=== PATIENT | male | born 1995 | race Caucasian/White ===

== ENCOUNTER 2024-07-21 12:26 | Emergency (ER) | payer BC, SELFPAY ==
[2024-07-21 12:40] VITALS: BP 126/69; PULSE 85; RESP 16; TEMP 36.3; O2SAT 98; BMI 28.5
--- NOTE | 2024-07-21 13:06 | ED.LOWEXIN ---
HPI - Extremity Injury (Lower) General Date Seen: 07/21/24 Chief Complaint: Extremity Pain/Injury, Lower Stated Complaint: Right knee and hip injury Time Seen by Provider: 07/21/24 12:29 Source: patient Mode of arrival: ambulatory Limitations: no limitations History of Present Illness HPI Narrative: Patient is a 29-year-old male presenting for right hip and right knee pain. He states 2 days ago he was skiing when he fell. There was a twisting motion knee heard a pop in his knee. Since then has been wearing a brace that he purchased from [employer] but does have quite a bit of pain with movement. Is able support his weight on the right leg but if there was any twisting he has a severe amount of pain and feels like his knee will give out. Also having some right lateral hip pain. Most the pain is on the medial aspect of his knee. No other injuries noted. Related Data Previous Rx's ?Medication ?Instructions ?Recorded oxycodone 5 mg tablet 5 mg PO Q6H PRN pain #12 tabs 07/21/24 Allergies Allergy/AdvReac Type Severity Reaction Status Date / Time No Known Drug Allergies Allergy Verified 07/21/24 12:35 Review of Systems Narrative: Pertinent systems reviewed and were negative unless stated in HPI Exam Narrative: Exam Narrative: Const: Well-nourished, Well-developed, in mild distress Eyes: PERRL, no conjunctival injection, and symmetrical lids HENT: Atraumatic external nose and ears. Moist mucous membranes. MSK: Some swelling over the right knee with tenderness noted to the medial aspect of the joint. Mild tenderness to palpation right trochanteric process. Lionel's test shows knee pain and a clicking sound when doing both valgus and varus stress Skin: Warm, Dry. No rashes or lesions. Neuro: Normal Muscle tone, No focal neurological deficits. Psych: Awake, Alert, & Oriented x3. Appropriate mood and affect. Const: Vital Signs, click to edit/add: Vital Signs - 24 hr 07/21/24 12:40 Temperature 97.4 F L Pulse Rate [Pulse Oximeter] 85 Respiratory Rate 16 Blood Pressure [Ri ght Upper Arm] 126/69 Pulse Oximetry 98 Oxygen Delivery Me thod Room Air Course Vital Signs Vital signs: Initial Vital Signs Temperature 97.4 F L 07/21/24 12:40 Temperature Source Temporal Artery Scan 07/21/24 12:40 Pulse Rate 85 07/21/24 12:40 Pulse Rhythm Regular 07/21/24 12:40 Respiratory Rate 16 07/21/24 12:40 Blood Pressure 126/69 07/21/24 12:40 Blood Pressure Mean 88 07/21/24 12:40 Blood Pressure Position Sitting 07/21/24 12:40 Pulse Oximetry 98 07/21/24 12:40 Oxygen Delivery Method Room Air 07/21/24 12:40 Vital Signs Temperature 97.4 F L 07/21/24 12:40 Pulse Rate 85 07/21/24 12:40 Respiratory Rate 16 07/21/24 12:40 Blood Pressure 126/69 07/21/24 12:40 Pulse Oximetry 98 07/21/24 12:40 Oxygen Delivery Method Room Air 07/21/24 12:40 Temperature 97.4 F L 07/21/24 12:40 Pulse Rate 85 07/21/24 12:40 Respiratory Rate 16 07/21/24 12:40 Blood Pressure 126/69 07/21/24 12:40 Pulse Oximetry 98 07/21/24 12:40 Oxygen Delivery Method Room Air 07/21/24 12:40 MDM - Extremity Injury (Lower) MDM Narrative Medical decision making narrative: Patient is a 29-year-old male presenting for right knee and hip pain. Hip pain is unlikely to be anything see years for will do an x-ray. Concern of her fracture is low. I do believe he likely has a meniscal tear to his right knee possible MCL injury. Will do an x-ray to make sure there are no fractures. I ordered the right knee x-ray but also accidentally ordered and hip CT instead of an x-ray. The CT of his right hip shows a 2 mm shows punctate hyperdensity in the superior thigh likely a foreign body or sequela from a previous injury. The x-ray of the knee shows possible hairline fracture of the tibial spine. This could represent a nondisplaced tibial spine fracture. This could be a sign of ACL injury. I spoke to the patient about needing to follow up with Orthopedics. 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 He may be unable to follow-up with orthopedics until then. Due that I spoke to him about MRI. I explained to him cost associated with MRI he states he understands. He would like to do the MRI now. While I was waiting for the MRI to be done I did speak to the on-call orthopedics provider and asked the patient has an ACL and meniscus injury if he needs to follow up right away or he can follow up when he is back to his home state in a few months. I was informed that he can follow-up in a few months the patient will be just very uncomfortable that entire time. I explained this to the patient and he agrees with this plan. MRI will be done. knee brace and crutches ordered Patient is expected to be discharged after his MRI is read. Discharge Plan Discharge Clinical Impression: Acute medial meniscal injury of right knee Qualifiers: Encounter type: initial encounter Qualified Code(s): S83.8X1A - Sprain of other specified parts of right knee, initial encounter ACL (anterior cruciate ligament) tear Qualifiers: Encounter type: initial encounter Laterality: right Qualified Code(s): S83.511A - Sprain of anterior cruciate ligament of right knee, initial encounter Patient Disposition: Home, Self-Care Condition: Stable Additional Instructions: Using a knee brace as needed for comfort. He may need to get a larger 1 for support of your knee. I prescribed a written prescription for crutches and a knee brace Prescriptions: New oxycodone 5 mg tablet 5 mg PO Q6H PRN (Reason: pain) Qty: 12 0RF Follow Up/Referrals: Provider,Not a Local [Primary Care Provider] - Stand Alone Forms: damntheradio Info Instructions
--- OUTSIDE RECORDS SUMMARY | 2024-07-21 13:21 | XMS_ITS | Encounter Summary ---
Author Organization [facility] Address [address] [place] [address] Care Team Providers Care Director Of Radio Services Name Role Phone Ramon Hinson MD Primary Care Provider Encounter Details Date Type Department Care Team (Late st Contact Info) Description 07/01/2024 External Device Data [facility] Provider, Abstract NO ADDRESS ON FILE Social History Tobacco Use Types Packs/Day Years Used Date Smoking Tobacco: Former Cigarettes Smokeless Tobacco: Never Alcohol Use Standard Drinks/Week Comments Yes 0 (1 standard drink = 0.6 oz pur e alcohol) one beer a week Sex and Gender Information Value Date Recorded Sex Assigned at Not on file Legal Sex Male 12:34 PM CDT Gender Identity Not on file Sexual Orientation Not on file documented as of this encounter Plan of Treatment Not on file documented as of this encounter Visit Diagnoses Not on filedocumented in this encounter Care Teams Director Of Radio Services Relationship Specialty Start Date End Date Ramon Hinson MD [address] [place] [phone] PCP - General Internal Medicine 09/18/23 documented as of this encounter
--- OUTSIDE RECORDS SUMMARY | 2024-07-21 13:21 | XMS_ITS | Encounter Summary ---
Author Organization [facility] Address [address] [place] [address] Care Team Providers Care Firearms Model Maker Name Role Phone Ramon Hinson MD Primary Care Provider Encounter Details Date Type Department Care Team (Late st Contact Info) Description 07/07/2024 External Device Data [facility] Provider, Abstract [...] on filedocumented in this encounter Care Teams Firearms Model Maker Relationship Specialty Start Date End Date Ramon Hinson MD [address] [place] [phone] PCP - General Internal Medicine 09/18/23 documented as of this encounter
--- OUTSIDE RECORDS SUMMARY | 2024-07-21 13:21 | XMS_ITS | Clinical Summary ---
Author Organization [facility] Hipolito Knight Address [address] [place] [address] [place] [phone] Phone Care Team Providers Care Slot Editor Name Role Phone Ramon Hinson MD Primary Care Provider [phone] Medications omeprazole (PriLOSEC) 40 mg Capsule, Delayed Release(E.C.) Take 1 Capsule (40 mg) by mouth daily. 90 Capsule 1 09/23/2023 Active Active Problems No known active problems Encounters Date Type Department Care Team Description 07/07/2024 External Device Data [facility] Provider, Abstract 07/01/2024 External Device Data [facility] Provider, Abstract 06/03/2024 External Device Data [facility] Provider, Abstract 06/02/2024 External Device Data [facility] Provider, Abstract 05/27/2024 External Device Data [facility] Provider, Abstract from Last 3 Months Social History Tobacco Use Types Packs/Day Years Used Date Smoking Tobacco: Former Cigarettes Smokeless Tobacco: Never Tobacco Cessation:Counseling Given: Not Answered Alcohol Use Standard Drinks/Week Comments Yes 0 (1 standard drink = 0.6 oz pur e alcohol) one beer a week Sex and Gender Information Value Date Recorded Sex Assigned at Not on file Legal Sex Male 12:34 PM CDT Gender Identity Not on file Sexual Orientation Not on file Last Filed Vital Signs Vital Sign Reading Time Taken Comments Blood Pressure 108/75 02/29/2024 10:11 AM CDT Pulse 97 02/29/2024 10:11 AM CDT Temperature 36.8 C (98.3 F) 02/29/2024 10:11 AM CDT Respiratory Rate 18 02/29/2024 10:11 AM CDT Oxygen Saturation 95% 02/29/2024 10:11 AM CDT Inhaled Oxygen Concentration - - Weight 102.1 kg (225 lb) 02/29/2024 10:11 AM CDT Height 182.9 cm (6') 02/29/2024 10:11 AM CDT Body Mass Index 30.52 02/29/2024 10:11 AM CDT Plan of Treatment Health Maintenance Due Date Last Done Comments DTAP/TDAP/TD VACCINES (1 - Tdap) 2013 HEPATITIS B VACCINES (1 of 3 - 19+ 3-dose series) 2013 INFLUENZA VACCINE (#1) 2023 09/18/2023 Preventative Visit- Commercial 05/13/2024 HPV VACCINES Aged Out No longer eligi ble based on patient's age to complete this topic [facility] [employer] [facility] Care Teams Slot Editor Relationship Specialty Start Date End Date Ramon Hinson MD [address] [place] [phone] PCP - General Internal Medicine 09/18/23
== END 2024-07-21 18:22 | disposition home or self-care (01) ==
PROVIDERS: Emergency Provider Emergency Medicine
DX: S83.511A Sprain of anterior cruciate ligament of right knee, initial encounter (principal); X50.1XXA Overexertion from prolonged static or awkward postures, initial encounter; Y93.23 Activity, snow (alpine) (downhill) skiing, snowboarding, sledding, tobogganing and snow tubing
CPT/HCPCS: 73562; 73700; 73721; 99284